=== PATIENT | male | born 1960 | race Caucasian/White ===

== ENCOUNTER 2017-08-26 09:46 | Day surgery (SDC) | payer MEDICARE, OTHER ==
[~2017-08-26] VITALS: Ht 160 cm; Wt 104.1 kg
[~2017-08-26 09:46] MED LIST: AMIT50TA3 PO; DEPRESSION; HIGH BLOOD PRESSURE; HIGH CHOLESTEROL; METF500T4 PO; OMEP20CA16 PO; PREG50CA PO; RANI150T9 PO; TRAM50TA2 PO
[2017-08-26 10:00] VITALS: Ht 160 cm; Wt 104.1 kg
[2017-08-26] MEDS ORDERED: PROPOFOL 40 ML ONE (10:29)
[2017-08-26 10:31] VITALS: BP 133/80; PULSE 59; RESP 16
[2017-08-26] MEDS ORDERED: MIRALAX PO (10:35)
[2017-08-26] MEDS ORDERED: TRAM50TA2 PO (10:36)
--- NOTE | 2017-08-26 11:25 | OPPN ---
Date/Time of Note Date/Time of Note DATE: 08/26/17 TIME: 11:23 Operative Report Preoperative Diagnosis Abdominal pain Chronic heartburn Change in bowel habit Postoperative Diagnosis Hiatal hernia with reflux esophagitis and erosions Gastritis with erosions Small transverse colon polyp was removed Internal hemorrhoids Operation/Procedure Performed Esophagogastroduodenoscopy and biopsy Colonoscopy and biopsy Surgeon see signature line retail event and sales assistant None Anesthesia: MAC Estimated blood loss: none Transfusion Required none Specimen Gastric mucosal biopsy Transverse colon polyp biopsy Grafts/Implants none Complications none JENNA FAIRCHILD MD Aug 26, 2017 11:25
--- NOTE | 2017-08-27 08:35 | GILP ---
DATE OF PROCEDURE: NAME OF PROCEDURES: 1. Esophagogastroduodenoscopy and biopsy. 2. Colonoscopy and biopsy. SURGEON: Jenna Nichols MD PREOPERATIVE DIAGNOSES: 1. Abdominal pain. 2. Chronic heartburn. 3. Change in bowel habit. POSTOPERATIVE DIAGNOSES: 1. Hiatal hernia. 2. Reflux esophagitis with erosions at the lower end. 3. Gastritis with erosions. 4. Gastric mucosal biopsies were taken for histopathology. 5. Colonoscopy all the way to the cecum. 6. Poor prep making the exam somewhat suboptimal. 7. Transverse colon polyp was removed using the biopsy forceps. 8. Internal hemorrhoids. INDICATION FOR THE PROCEDURE: Mr. Aamir Carrera is a 56-year-old male patient who had upper abdomi nal pain and chronic heartburn, not responding to therapy. The patient also noticed a change in the bowel habit. He had a previous colonoscopic examination which was suboptimal because of poor prepa ration. The procedures and possible complications were well explained to the patient, he understood and cons ented to the procedure. DESCRIPTION OF PROCEDURE: Under the influence of anesthesia, the gastroscope was carefully introduc ed into the esophagus and under direct vision, it was advanced to the stomach and through the pyloru s into the duodenal bulb and descending duodenum. FINDINGS: ESOPHAGUS: The patient had hiatal hernia with reflux esophagitis and erosions at the lower end. STOMACH: He had gastritis with erosions. Gastric mucosal biopsies were taken for H. pylori test. DUODENUM: Normal. The colonoscope was carefully introduced in the rectum and under direct vision, it was advanced all the way to the cecum. FINDINGS: The patient had poor prep making the exam somewhat suboptimal. He was noted to have a sm all transverse colon polyp and it was removed using the biopsy forceps. He had internal hemorrhoids . He tolerated the procedures very well and there was no complication from the procedures. At the end of the procedures, he was awake with stable vital signs and he was discharged home to the care of h is family. IMPRESSION: 1. Hiatal hernia. 2. Reflux esophagitis with erosions. 3. Gastritis with erosions. 4. Gastric mucosal biopsies were taken for histopathology. 5. Colonoscopy all the way to the cecum. 6. Poor prep making the exam somewhat suboptimal. 7. Small transverse colon polyp was removed using the biopsy forceps. 8. Internal hemorrhoids. PLAN: 1. Await histopathology reports. 2. Nexium 40 mg p.o. b.i.d. 3. Continue MiraLax. 4. Next screening colonoscopy in 5 years. Dictated By: JENNA VALENTE/CAPO Conf#: [id number] DID#: [id number]
== END 2017-08-26 14:19 | disposition home or self-care (01) ==
LOC: GIL 09:46
PROVIDERS: ATTEND Internal Medicine Gastroenterology
DX: R10.9 Unspecified abdominal pain (principal); K44.9 Diaphragmatic hernia without obstruction or gangrene; K21.0 Gastro-esophageal reflux disease with esophagitis; K22.10 Ulcer of esophagus without bleeding; K29.70 Gastritis, unspecified, without bleeding; K25.9 Gastric ulcer, unspecified as acute or chronic, without hemorrhage or perforation; K64.8 Other hemorrhoids; E11.9 Type 2 diabetes mellitus without complications; I10 Essential (primary) hypertension; R12 Heartburn; R19.8 Other specified symptoms and signs involving the digestive system and abdomen; D12.3 Benign neoplasm of transverse colon
CPT/HCPCS: 82962; 88305